=== PATIENT | male | born 1975 | race Two or more races ===

== ENCOUNTER 2016-04-18 09:37 | Emergency (ER) | payer OTHER ==
[2016-04-18] MEDS ORDERED: IBUPROFEN 600 MG TABLET ONE (12:32)
[2016-04-18] MEDS ORDERED: ACETAMINOPHEN 325 MG TABLET ONE (12:33)
[2016-04-18] MEDS ORDERED: DEXAMETHASONE 4 MG TABLET ONE (12:33)
[2016-04-18] MEDS ORDERED: PENICILLIN G BENZATHINE 1.2 MMU/2 ML SYRINGE IM ONE (12:34)
== END 2016-04-18 13:03 | disposition home or self-care (01) ==
LOC: ED 09:37
DX: J02.0 Streptococcal pharyngitis (principal)
CPT/HCPCS: 87880; 87804; 99283 ×2; 96372; A9270 ×3; J0561